=== PATIENT | male | born 1980 | race Caucasian/White ===

== ENCOUNTER 2016-10-18 03:13 | Emergency (ER) | payer SELFPAY ==
[2016-10-18 02:59] LABS: BASOPHILS 1.8 %; BASOPHILS ABSOLUTE 0.15 10/3/uL (0.0-0.16); EOSINOPHILS 1.1 %; EOSINOPHILS ABSOLUTE 0.09 10/3/uL (0.0-0.53); ER CBC TAT 0 Hrs 09 Mins; HEMATOCRIT 35.1 % (40.0-51.0); HEMOGLOBIN 11.4 g/dL (13.6-17.8); IMMATURE GRANULOCYTES 0.1 %; IMMATURE GRANULOCYTES ABSOLUTE 0.01 10/3/uL (0.0-0.11); LYMPHOCYTES 48.1 %; LYMPHOCYTES ABSOLUTE 4.03 10/3/uL (0.67-4.30); MEAN CORPUS HGB CONC 32.5 g/dL (32.0-36.0); MEAN CORPUSCULAR HEMOGLOB 27.4 pg (26.0-34.0); MEAN CORPUSCULAR VOLUME 84.4 fL (80-100); MEAN PLATELET VOLUME 9.6 fL (9.2-13.0); MONOCYTES 10.3 %; MONOCYTES ABSOLUTE 0.86 10/3/uL (0.21-1.20); NEUTROPHILS 38.6 %; NEUTROPHILS ABSOLUTE 3.23 10/3/uL (2.02-8.40); PLATELET COUNT 156 10/3/uL (150-400); RBC DISTRIBUTION WIDTH 16.6 % (12.0-16.0); RED CELL COUNT 4.16 10/6/uL (4.7-6.1); WHITE BLOOD CELLS 8.4 10/3/uL (4.5-10.5)
[2016-10-18 03:01] LABS: MANUAL DIFF NO %
[2016-10-18 03:12] LABS: BE (BASE EXCESS) -7.2 MEQ/L (0 +/- 2.5); CARBOXYHEMOGLOBIN 4.9 % (0-3); HCO3 (ACTUAL BICARBONATE) 19.2 MEQ/L (23-27); INSTRUMENT SERIAL # 8087; METHEMOGLOBIN 0.2 % (0-3); O2 CONTENT 14.6 VOL% (18-24); PCO2 (CO2 TENSION) 42 MMHG (35-45); PO2 (O2 TENSION) 73 MMHG (79-93); SAMPLE Arterial; pH 7.28 (7.37-7.43)
[2016-10-18 03:18] LABS: A/G RATIO 0.8 (0.7-1.9); ALKALINE PHOSPHATASE 90 U/L (45-117); BUN (BLOOD UREA NITROGEN) 8 MG/DL (6-23); CALCIUM, SERUM 8.6 MG/DL (8.5-10.4); CHLORIDE, SERUM 105 MMOL/L (96-112); CO2 (CARBON DIOXIDE) 25 MMOL/L (24-34); CPK (IF ELEVATED MB BANDS) 725 U/L (0-200); CREATININE 1.07 MG/DL (0.70-1.30); GFR AFRICAN AMERICAN 104 ML/MIN (>=60); GFR NON AFRICAN AMERICAN 89 ML/MIN (>=60); GLOBULIN 5.2 G/DL (2.5-4.1); GLUCOSE, SERUM 147 MG/DL (60-99); POTASSIUM, SERUM 3.1 MMOL/L (3.5-5.3); SALICYLATE 2.1 MG/DL (-); SGOT(AST) 112 U/L (5-40); SGPT(ALT) 69 U/L (5-65); SODIUM, SERUM 143 MMOL/L (135-148); TOTAL BILIRUBIN 0.6 MG/DL (0-1.2); TOTAL PROTEIN 9.2 G/DL (6.0-8.5); TROPONIN I <0.02 NG/ML (<0.05)
[2016-10-18 03:19] LABS: ACETAMINOPHEN LEVEL (TYLENOL) < 2.0 MCG/ML (10.0-20.0); ALCOHOL 355 MG/DL (0)
[2016-10-18 04:43] LABS: CK-MB 6.8 NG/ML
[2016-10-18 04:44] LABS: CKMB INDEX (NOT ORD) 0.9
[2016-10-18 06:28] LABS: AMPHETAMINES (NOT ORD) NEG (NEG); BARBITURATES (NOT ORDERED NEG (NEG); BENZODIAZEPINES (NOT ORD) NEG (NEG); CANNABINOIDS (THC) POS (NEG); COCAINE (NOT ORDERED) POS (NEG); OPIATES POS (NEG); PHENCYCLIDINE(PCP) NEG (NEG); TRICYCLICS NEG (NEG)
== END 2016-10-18 10:18 | disposition home or self-care (01) ==
LOC: ER 03:13
PROVIDERS: Specialist
DX: T40.1X1A Poisoning by heroin, accidental (unintentional), initial encounter (principal); F17.200 Nicotine dependence, unspecified, uncomplicated
CPT/HCPCS: 36600; 70450; 70486; 71010; 72125; 80053; 80305; 80307; 82550; 82553; 82805; 82962; 84484; 85025; 96365; 96375; 99284; G0480; J2310